=== PATIENT | female | born 1970 | race Caucasian/White ===

== ENCOUNTER → 2017-04-05 13:33 | Outpatient (CLI) | payer BC ==
[2011-10-06 06:22] VITALS: BMI 37.7
== END | disposition home or self-care (01) ==
LOC: D.MAMMO 09:15
DX: Z12.31 Encounter for screening mammogram for malignant neoplasm of breast (principal)

== ENCOUNTER → 2018-04-07 09:30 | Outpatient (CLI) | payer BC ==
[2011-10-06 06:22] VITALS: BMI 37.7
== END | disposition home or self-care (01) ==
LOC: D.MAMMO 09:30
DX: Z12.31 Encounter for screening mammogram for malignant neoplasm of breast (principal)

== ENCOUNTER 2019-12-28 23:39 | Observation (INO) | payer OTHER ==
[~2019-12-28] VITALS: Ht 170.2 cm; Wt 98.6 kg
[2019-12-28] MEDS ORDERED: TIROSINT125 MCG PO (23:49)
[2019-12-28] MEDS ORDERED: PROTONIX40 MG PO (23:49)
[2019-12-29 00:11] LABS: BASOPHILS 0.2 % (0-2); EOSINOPHILS 0.5 % (0-7); HEMATOCRIT 39.4 % (36.0-48.0); HEMOGLOBIN 12.8 g/dL (12-16); IMMATURE GRANULOCYTES 0.2 % (0-5); LYMPHOCYTES 19.3 % (15-50); MCH 28.4 pg (26.0-34.0); MCHC 32.5 g/dL (31.0-37.0); MCV 87.4 fL (80.0-100.0); MONOCYTES 6.4 % (2-11); NEUTROPHILS 73.4 % (40-80); RBC 4.51 10x6/uL (4.00-5.40); RDW 13.1 % (11.5-14.5); WBC 13.1 10x3/uL (4.8-10.8)
[2019-12-29 00:12] LABS: PLATELET COUNT 301 10x3/uL (130-400)
--- NOTE | 2019-12-29 00:16 | NUR ---
URINE SENT TO LAB
[2019-12-29 00:21] LABS: CALC OSMOLALITY 274 mosm/kg (275-300); CALCIUM 8.2 mg/dL (8.5-10.1); CHLORIDE - SERUM 101 mmol/L (98-107); CREATININE - SERUM 0.9 mg/dL (0.6-1.3); POTASSIUM - SERUM 3.4 mmol/L (3.5-5.1); SODIUM 137 mmol/L (136-145); UREA NITROGEN 11 mg/dL (7-18); eGFR NON AFRICAN AMERICAN 70 mL/min (90-120)
[2019-12-29 00:21] LABS: BILIRUBIN NEGATIVE (NEGATIVE); GLUCOSE NEGATIVE (NEGATIVE); KETONE NEGATIVE (NEGATIVE); NITRITE NEGATIVE (NEGATIVE); UROBILINOGEN NORMAL (NORMAL)
[2019-12-29 00:23] LABS: GLUCOSE 137 mg/dL (74-106)
[2019-12-29 00:35] LABS: ALBUMIN 3.6 g/dL (3.4-5.0); ALKALINE PHOSPHATASE 104 U/L (30-120); ALT (SGPT) 27 U/L (10-68); BILIRUBIN - TOTAL 0.95 mg/dL (0.2-1.3); C-REACTIVE PROTEIN 4.6 mg/dL (0.0-0.9); LIPASE 76 U/L (73-393); PROTEIN - SERUM 7.6 g/dL (6.4-8.2); THYROID STIMULATING HORMONE 0.21 uIU/mL (0.36-3.74)
[2019-12-29 00:36] LABS: TROPONIN-I < 0.017 ng/mL (0.000-0.060)
--- NOTE | 2019-12-29 02:20 | NUR ---
PT AMBULATED INDEPENDENTLY TO THE RESTROOM
[2019-12-29 04:00] VITALS: BP 124/79
--- NOTE | 2019-12-29 04:00 | NUR ---
RECEIVED PT TO FLOOR FROM ER VIA WHEELCHAIR. REVIEWED HOME MEDS AND HISTORY. ADDED THYROID CA AND 2014 THYROIDECTOMY TO HISTORY. PT RATES RUQ PAIN 3/10 NOW. GAVE SCHEDULED TORADOL. NO OTHER NEEDS. WILL REASSESS AND CONTINUE TO MONITOR.
[2019-12-29 04:42] VITALS: BMI 34.0
--- NOTE | 2019-12-29 08:26 | NUR ---
ALERT ADN ORIENTED X4 WITH C/O OF NAUSEA AND RUQ ANBDOMINAL PAIN 5/10. SOFRAN AND MORPHINE GIVEN PRIOR TO PATIENT LEAVING FLOOR FOR MRI. CONTINUED NPO STATUS. STABLE AT TIME OF DEPATURE
[2019-12-29 12:00] VITALS: BP 122/71
[2019-12-29 16:00] VITALS: BP 111/67
--- NOTE | 2019-12-29 16:40 | NUR ---
DR NOVAK AND NURSE LYSSA RAZO AT [facility] FOR CT LIVER BIOPSY TO BE SCHEDULED FOR SATURDAY 12/30
[2019-12-29 17:24] VITALS: Ht 170.2 cm; Wt 98.6 kg
[2019-12-29 20:00] VITALS: BP 102/51
--- NOTE | 2019-12-29 21:30 | NUR ---
UP AMBULATING IN ROOM AND HALLWAY. NO COMPLAINTS VOCIED AT THIS TIME. RESP EVEN AND UNALBORED. CL IN REACH. AT BEDSIDE.
--- NOTE | 2019-12-29 23:00 | NUR ---
I have reviewed this patient and I concur with the Shift Assessment completed by the Licensed Practical Nurse today this shift.
[2019-12-30] VITALS (7 sets, daily range): BP systolic 108–129; BP diastolic 54–79
[2019-12-30 06:34] LABS: BASOPHILS 0.1 % (0-2); EOSINOPHILS 0.8 % (0-7); HEMOGLOBIN 11.7 g/dL (12-16); IMMATURE GRANULOCYTES 0.2 % (0-5); LYMPHOCYTES 21.7 % (15-50); MCH 28.5 pg (26.0-34.0); MCHC 32.5 g/dL (31.0-37.0); MCV 87.6 fL (80.0-100.0); MEAN PLATELET VOLUME 10.2 fL (7.4-10.4); MONOCYTES 4.9 % (2-11); NEUTROPHILS 72.3 % (40-80); PLATELET COUNT 300 10x3/uL (130-400); RBC 4.11 10x6/uL (4.00-5.40); RDW 13.1 % (11.5-14.5); WBC 10.1 10x3/uL (4.8-10.8)
[2019-12-30 07:15] LABS: CALC OSMOLALITY 285 mosm/kg (275-300); CALCIUM 8.3 mg/dL (8.5-10.1); CARBON DIOXIDE 28.7 mmol/L (21.0-32.0); CHLORIDE - SERUM 108 mmol/L (98-107); CREATININE - SERUM 0.8 mg/dL (0.6-1.3); GLUCOSE 108 mg/dL (74-106); INR 1.21 (0.85-1.17); MAGNESIUM - SERUM 2.1 mg/dL (1.8-2.4); PHOSPHOROUS 3.5 mg/dL (2.5-4.9); POTASSIUM - SERUM 3.6 mmol/L (3.5-5.1); PROTIME 15.3 SECONDS (11.6-15.0); SODIUM 144 mmol/L (136-145); eGFR NON AFRICAN AMERICAN 80 mL/min (90-120)
[2019-12-30 07:16] LABS: APTT 35.8 SECONDS (22.8-39.4)
[2019-12-30 07:21] LABS: UREA NITROGEN 8 mg/dL (7-18)
--- NOTE | 2019-12-30 09:13 | NUR ---
ALERT AND ORIENTED TO SELF ONLY WITH FAMILY AT BEDSIDE.FALL PRECAUTIONS IN PLACE AND DENIES ANY PAIN OR DISCOMFORT AT THIS TIME. AMBULATES WITH ASSSIT X1 TO BATHROOM. NO PERIPHERAL EDEMA NOTED. ENCOURAGED TO USE CALL LIGHT FOR ASSSIT.
--- NOTE | 2019-12-30 21:30 | NUR ---
UP IN ROOM. TOOK SHOWER. IV RECONNECTED.SITE WITHOUT REDNESS OR EDEMA AT SITE.NO COMPLAINTS VOICED.CL IN REACH
[2019-12-31] VITALS (13 sets, daily range): BP systolic 92–140; BP diastolic 45–67
--- NOTE | 2019-12-31 03:23 | NUR ---
I have reviewed this patient and I concur with the Shift Assessment completed by the Licensed Practical Nurse today this shift.
[2019-12-31 05:30] LABS: BASOPHILS 0.3 % (0-2); EOSINOPHILS 1.1 % (0-7); HEMATOCRIT 35.3 % (36.0-48.0); HEMOGLOBIN 11.1 g/dL (12-16); IMMATURE GRANULOCYTES 0.3 % (0-5); LYMPHOCYTES 30.1 % (15-50); MCH 27.8 pg (26.0-34.0); MCHC 31.4 g/dL (31.0-37.0); MCV 88.5 fL (80.0-100.0); MEAN PLATELET VOLUME 10.2 fL (7.4-10.4); MONOCYTES 5.3 % (2-11); NEUTROPHILS 62.9 % (40-80); PLATELET COUNT 277 10x3/uL (130-400); RBC 3.99 10x6/uL (4.00-5.40); RDW 13.1 % (11.5-14.5)
[2019-12-31 06:09] LABS: ANION GAP 9.6 mmol/L (8-16); CALCIUM 7.5 mg/dL (8.5-10.1); CARBON DIOXIDE 27.7 mmol/L (21.0-32.0); CREATININE - SERUM 0.9 mg/dL (0.6-1.3); MAGNESIUM - SERUM 1.8 mg/dL (1.8-2.4); PHOSPHOROUS 3.3 mg/dL (2.5-4.9); POTASSIUM - SERUM 3.3 mmol/L (3.5-5.1)
--- NOTE | 2019-12-31 06:45 | NUR ---
A&O WALKING AROUND ROOM THIS AM. NO C/O PAIN. NO S/S OF ACUTE DISTRESS NOTED. AT BEDSIDE. LIVER BIOPSY SCHEDULED FOR TODAY, NPO AT THIS TIME. IV TO RIGHT FOREARM, NS INFUSING @ 75ML/HR. SITE PATENT WITHOUT REDNESS OR SWELLING. POTASSIUM 3.3 THIS AM. DENIES ANY NEEDS AT THIS TIME. CALL LIGHT IN REACH. WILL CONTINUE TO MONITOR.
[2019-12-31 08:31] LABS: INR 1.18 (0.85-1.17); PROTIME 14.9 SECONDS (11.6-15.0)
[2019-12-31 08:32] LABS: APTT 33.2 SECONDS (22.8-39.4)
--- NOTE | 2019-12-31 13:29 | NUR ---
I have reviewed this patient and I concur with the Shift Assessment completed by the Licensed Practical Nurse today this shift.
--- NOTE | 2019-12-31 19:30 | NUR ---
PT LYING IN BED WITHOUT DISTRESS, AOX4. AT BESIDE. JUST RECIEVED PAIN AND NAUSEA MEDS. IV RIGHT FA INFUSING NS @ 75. DENIES NEEDS AT THIS TIME. CL IN REACH, WILL CTM
--- NOTE | 2020-01-01 02:15 | NUR ---
PT CALLED STATING PAIN TO RIGHT SIDE 01/20. STATES IT IS A STABBING PAIN THAT MAKES IT HARD TO BREATHE. GAVE NORCO AND COMPAZINE ORDERED. DENIES OTHER NEEDS, WILL CTM
[2020-01-01 04:00] VITALS: BP 129/76
[2020-01-01 05:29] LABS: BASOPHILS 0.1 % (0-2); EOSINOPHILS 0.5 % (0-7); HEMATOCRIT 35.6 % (36.0-48.0); HEMOGLOBIN 11.4 g/dL (12-16); IMMATURE GRANULOCYTES 0.1 % (0-5); LYMPHOCYTES 14.9 % (15-50); MCV 87.5 fL (80.0-100.0); MEAN PLATELET VOLUME 10.1 fL (7.4-10.4); MONOCYTES 6.4 % (2-11); PLATELET COUNT 283 10x3/uL (130-400); RBC 4.07 10x6/uL (4.00-5.40); RDW 13.1 % (11.5-14.5)
[2020-01-01 06:03] LABS: WBC 10.3 10x3/uL (4.8-10.8)
[2020-01-01 06:10] LABS: CALCIUM 8.1 mg/dL (8.5-10.1); CARBON DIOXIDE 31.1 mmol/L (21.0-32.0); CREATININE - SERUM 0.9 mg/dL (0.6-1.3); MAGNESIUM - SERUM 1.7 mg/dL (1.8-2.4)
[2020-01-01 06:44] LABS: ANION GAP 8.3 mmol/L (8-16); POTASSIUM - SERUM 3.4 mmol/L (3.5-5.1)
--- NOTE | 2020-01-01 06:50 | NUR ---
A&O SITTING UP IN CHAIR. NO C/O PAIN. NO S/S OF ACUTE DISTRESS NOTED. POD #1 LIVE BIOPSY, DRESSING C/D/I. IV TO RIGHT FOREARM, NS INFUSING @ 75ML/HR. SITE PATENT WITHOUT REDNESS OR SWELLING. POTASSIUM 3.4 AND MAGNESIUM 1.7 THIS AM, WILL FOLLOW ELECTROLYTE PROTOCOL. DENIES ANY NEEDS AT THIS TIME. WILL CONTINUE TO MONITOR.
[2020-01-01 08:35] VITALS: BP 114/67
[2020-01-01 10:12] LABS: HEPATITIS C ANTIBODY <0.1 S/CO RAT (0.0-0.9)
[2020-01-01] MEDS ORDERED: COLACE100 MG PO (11:06)
[2020-01-01] MEDS ORDERED: NORCO-7.5 PO ×2 (11:06→11:08)
--- NOTE | 2020-01-01 11:55 | NUR ---
I have reviewed this patient and I concur with the Shift Assessment completed by the Licensed Practical Nurse today this shift.
[2020-01-01 12:11] LABS: CA 27-29 19.7 U/mL (0.0-38.6)
[2020-01-01 13:03] VITALS: BP 119/68
--- NOTE | 2020-01-01 14:23 | NUR ---
DISCHARGED PATIENT HOME VIA WHEELCHAIR WITH FAMILY. DISCONTINUED IV, CATHETER TIP INTACT. WENT OVER DISCHARGE INSTRUCTIONS WITH PATIENT, VERBALIZED UNDERSTANDING. DENIES ANYTHING FURTHER.
[2020-01-01 15:12] LABS: ALPHA FETOPROTEIN -(TUMOR MRK) 2.1 ng/mL (0.0-8.3)
[2020-01-01 15:12] LABS: CA125 11.4 U/mL (0.0-38.1); CEA 1.1 ng/mL (0.0-4.7)
== END 2020-01-01 14:25 | disposition home or self-care (01) ==
LOC: D.ER 23:39 → D.MS 12-29 02:28 → OBSVTIME 12-29 02:28 → D.MS 01-01 14:25
PROVIDERS: Family Medicine; Internal Medicine Hematology & Oncology; Radiology Diagnostic Radiology; ADMIT Family Medicine; ATTEND Family Medicine
DX: R16.0 Hepatomegaly, not elsewhere classified (principal); E87.6 Hypokalemia; K21.9 Gastro-esophageal reflux disease without esophagitis; D72.829 Elevated white blood cell count, unspecified; Z85.850 Personal history of malignant neoplasm of thyroid

== ENCOUNTER 2020-03-17 07:42 | Day surgery (SDC) | payer OTHER ==
[~2020-03-17] VITALS: Ht 170.2 cm; Wt 99.5 kg
[~2020-03-17 07:42] MED LIST: COLACE100 MG PO; NORCO-7.5 PO; PROTONIX40 MG PO; TIROSINT125 MCG PO
[2020-03-17 08:08] LABS: HEMATOCRIT 35.8 % (36.0-48.0); HEMOGLOBIN 11.8 g/dL (12-16); MCH 29.2 pg (26.0-34.0); MCV 88.6 fL (80.0-100.0); MEAN PLATELET VOLUME 9.8 fL (7.4-10.4); RBC 4.04 10x6/uL (4.00-5.40); RDW 14.8 % (11.5-14.5); WBC 6.5 10x3/uL (4.8-10.8)
[2020-03-17] MEDS ORDERED: COLACE100 MG PO (08:34)
[2020-03-17 08:43] VITALS: Ht 170.2 cm; Wt 99.5 kg
[2020-03-17 08:57] LABS: ANION GAP 10.2 mmol/L (8-16); CALCIUM 8.9 mg/dL (8.5-10.1); CARBON DIOXIDE 29.6 mmol/L (21.0-32.0); POTASSIUM - SERUM 3.8 mmol/L (3.5-5.1)
--- NOTE | 2020-03-17 11:50 | NUR ---
DISCHARGE INSTRUCTIONS REVIEWED WITH PATIENT AND SPOUSE, DISCHARGED HOME VIA WHEELCHAIR TO PRIVATE VEHICLE WITH SPOUSE
== END 2020-03-17 11:50 | disposition home or self-care (01) ==
LOC: D.OPS 07:42
PROVIDERS: Anesthesiology; ATTEND Internal Medicine Gastroenterology
DX: C22.0 Liver cell carcinoma (principal); C22.1 Intrahepatic bile duct carcinoma; K59.00 Constipation, unspecified; K63.5 Polyp of colon; K57.30 Diverticulosis of large intestine without perforation or abscess without bleeding

== ENCOUNTER 2020-10-07 15:00 | Outpatient (CLI) | payer OTHER ==
[2020-05-05 13:18] VITALS: BMI 36.2
== END 2020-10-07 23:59 | disposition home or self-care (01) ==
LOC: D.MAMMO 15:00
PROVIDERS: ATTEND Clinical Nurse Specialist Adult Health
DX: Z12.31 Encounter for screening mammogram for malignant neoplasm of breast (principal)